=== PATIENT | female | born 1950 | race Caucasian/White ===

== ENCOUNTER → 2016-03-20 | Outpatient (CLI) | payer BC ==
[~2016-03-20] MED LIST: ALLOPURINOL300 M1 PO; ASPIRIN EC81 MG PO; CENTRUM SILVER1 TA1 PO; CLEOCIN HCL300 MG PO; DIABETIC TUSSI118 M2 PO; DICLOFENAC SOD75 MG PO; GABAPENTIN 600600 MG PO; LOPRESSOR50 MG PO; MAXZIDE 25 MG-31 TAB PO; PRILOSEC20 M1 PO; TAMIFLU 75MG CA75 MG PO; ZOFRAN ODT4 MG PO
--- NOTE | 2016-03-22 10:13 | RADIOLOGY REPORT PS360 ---
DIG MAMM-SCREEN LINA W/CAD CAD Screening COMPARISON: Digital mammograms 02/17/2015 and 12/04/2013 INDICATION: There is no personal or family history of breast cancer. There has been previous biopsy right breast. TECHNIQUE: Standard CC and MLO images were obtained. R2 CAD reviewed. FINDINGS: Moderate diffuse fibroglandular densities are seen in the central portions of both breast. There is a biopsy clip right breast adjacent to an area of post biopsy scarring. There is no new or suspicious lesion in either breast and there are no suspicious microcalcifications. There is a mole marker near the inframammary fold right breast. Patient fell several years ago sustaining hematoma right breast a marker was placed at the site of the hematoma and there is a small oval density with microcalcifications at this location. There are small nodes both axilla. IMPRESSION: Moderate breast density with no suspicious lesion seen recommend yearly follow-up BI-RADS CATEGORY: 2_Benign RECOMMENDED FOLLOWUP: 12M 12 MONTH FOLLOW-UP (A letter has been sent to the patient regarding results of the study.)
== END ==
LOC: RAD 11:00
DX: Z12.31 Encounter for screening mammogram for malignant neoplasm of breast (principal)
CPT/HCPCS: G0202